=== PATIENT | male | born 1995 | race Two or more races ===

== ENCOUNTER 2017-04-18 07:09 | Emergency (ER) | payer MEDICAID ==
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
== END 2017-04-18 08:45 | disposition home or self-care (01) ==
LOC: ER 07:09
DX: L50.9 Urticaria, unspecified (principal)
CPT/HCPCS: J1200; Z7502